=== PATIENT | male | born 1985 | race Caucasian/White ===

== ENCOUNTER 2017-02-11 18:33 | Emergency (ER) | payer BC ==
[2017-02-11 18:42] VITALS: BP 138/92
--- NOTE | 2017-02-11 18:52 | ED Physician Documentation ---
History of Present Illness - Stated complaint Stated Complaint: SYNCOPE - Chief complaint Chief Complaint: General - History obtained from History obtained from: Patient, Family () - History of Present Illness Timing: Other (Around 11 AM today he slipped on a wet stair outside and fell backwards hitting his back. He briefly had severe back pain which is now gone but while he was having the severe pack pain he developed blurry vision and blacked out and may have hit his head. Since then he has had a mild headache which is slowly improving not associated with continued issues with his vision or nausea.) Review of Systems Constitutional: denies: Fever, Chills, Myalgias Cardiac: denies: Chest pain / pressure, Palpitations Respiratory: denies: Dyspnea, Cough GI: denies: Abdominal Pain, Nausea, Vomiting, Diarrhea, Bloody / black stool PD PAST MEDICAL HISTORY - Past Medical History Past Medical History: No - Past Surgical History HEENT: Tonsil/Adenoidectomy - Allergies Allergies/Adverse Reactions: Allergies Allergy/AdvReac Type Severity Reaction Status Date / Time calcium carbonate * Allergy Hives Verified 02/11/17 18:43 [From Rolaids] dihydroxyaluminum sodium Allergy Hives Verified 02/11/17 18:43 carbo... * [From Rolaids] magnesium hydroxide Allergy Hives Verified 02/11/17 18:43 [From Rolaids] phenol [From Chloraseptic] Allergy Anaphylaxis Verified 02/11/17 18:43 shellfish derived Allergy Hives Verified 02/11/17 18:43 sodium phenolate * Allergy Anaphylaxis Verified 02/11/17 18:43 [From Chloraseptic] - Social History Does the pt smoke?: No Smoking Status: Never smoker Does the pt drink ETOH?: Yes Does the pt have substance abuse?: No - Immunizations Immunizations are current?: No Immunizations: TDAP >10years/unknown PD ED PE NORMAL - Vitals Vital signs reviewed: Yes - General General: Alert and oriented X 3, No acute distress - HEENT HEENT: PERRL, EOMI, Ears normal - Neck Neck: Supple, no meningeal sign, No bony TTP - Cardiac Cardiac: RRR, No murmur - Respiratory Respiratory: No respiratory distress, Clear bilaterally - Abdomen Abdomen: Normal bowel sounds, Soft, Non tender - Back Back: No CVA TTP, No spinal TTP - Derm Derm: Normal color, Warm and dry - Extremities Extremities: No edema, No calf tenderness / cord - Neuro Neuro: Alert and oriented X 3, senior energy consultant 2-12 intact, No motor deficit, No sensory deficit, Normal speech - Psych Psych: Normal mood, Normal affect Results - Vitals Vitals: Vital Signs - 24 hr 02/11/17 18:36 Temperature 35.9 C L Heart Rate 77 Respiratory 14 Rate Blood Pressure 138/92 H O2 Saturation 100 Oxygen O2 Source Room air PD MEDICAL DECISION MAKING - ED course ED course: 31-year-old after what sounds like a clear vasovagal episode due to pain which is now resolved, this was about 8 hours ago and family had concerns about a head injury but there is no evidence of persistent head injury or concussive symptoms at this juncture. Departure - Departure Disposition: 01 Home, Self Care Clinical Impression: Vasovagal syncope Minor head injury Qualifiers: Encounter type: initial encounter Qualified Code(s): S00.90XA - Unspecified superficial injury of unspecified part of head, initial encounter Condition: Good Record reviewed to determine appropriate education?: Yes Instructions: ED Head Injury Closed Comments: Your blood pressure was elevated today on check into the emergency department. This does not mean that you have hypertension, it is a common phenomenon to come to the emergency department and have elevated blood pressure. I recommend that she see your primary care physician within the week to have it rechecked when you are feeling better.
== END 2017-02-11 19:02 | disposition home or self-care (01) ==
LOC: ED 18:33
DX: S00.90XA Unspecified superficial injury of unspecified part of head, initial encounter (principal); W01.0XXA Fall on same level from slipping, tripping and stumbling without subsequent striking against object, initial encounter; R03.0 Elevated blood-pressure reading, without diagnosis of hypertension
CPT/HCPCS: 99283